=== PATIENT | female | born 1940 | race Caucasian/White ===

== ENCOUNTER 2016-04-23 23:13 | Inpatient (IN) | payer MEDICARE, OTHER ==
[~2016-04-23] VITALS: Ht 157.4 cm; Wt 67.3 kg
--- NOTE | ~2016-04-23 | DS ---
[place], [place] DISCHARGE SUMMARY [id number] UNIT #: [id number] ROOM: 407 DOCTOR: MAXIMILIANO TURK MD BIRTHDATE: [birth year] DOS: 04/26/2016 HOSPITAL COURSE: The patient is 76-year-old. The patient comes in with complaints of abdominal pain. Please refer H and P for details. The patient woken up during the night with severe abdominal pain, which continued to get worse as the night progressed, so she decided finally to come into the Emergency Room. She was evaluated in the ER, which showed a CT of the abdomen and pelvis shows fatty infiltration around the pancreas, lipase was 158,970, SGOT was 622, SGPT was 239, bilirubin was 1.2, lactic acid 1.5. White cell count 7.9. The patient was admitted with diagnosis of acute gallstone pancreatitis. Ultrasound of the gallbladder was done, which did not show any evidence of cholecystitis, but again cholelithiasis was noticed with possible common bile duct stones. The patient had a consultation with Dr. Ferguson from surgery and Dr. Juarez from GI, was advised MRCP, ERCP and cholecystectomy. The patient has refused all testing, has kept n.p.o. and was given IV fluids. With the pancreatic rest, the enzymes have slowly come down and the liver enzymes have also come down. The last hepatic enzymes we have with an SGOT of 64, SGPT 100, alkaline phosphatase 183 on 04/25/2016. Amylase and lipase at 359 and 2235 on 04/26/2016. The patient does not have any complaints today. She does not have any abdominal pain. No fever or chills. So the plan therefore is to discharge her to home after regular diet is given. The patient is going to seek a second opinion as regards to her care of plan. DISCHARGE MEDICATIONS: All her home meds being continued. She is advised to have an amylase and lipase on Friday. Lovastatin 20 daily, metoprolol 25 b.i.d., losartan 25 daily, alendronate 70 once weekly, Ecotrin 325 daily. MAXIMILIANO TURK MD CM:DISCHARG [id number] MAXIMILIANO TURK MD 04/26/16 0905 interface
--- NOTE | ~2016-04-23 | CON ---
[place], [place] REPORT OF CONSULTATION NAME: LILLY GUERRERO UNIT #: [id number] ROOM: 407 DOCTOR: SONG PASCUALMARIEL BIRTHDATE: [birth year] DOS: HISTORY OF PRESENT ILLNESS: A 76-year-old who has presented with chief complaint of acute abdominal pain. The patient was admitted through the Emergency Room and underwent blood work evaluation and was found to have differential, CBC was within normal limit. White blood cell was 7.9, H and H of 12 and 37. Lactic acid which was 1.7. Urinalysis unremarkable. CT scan of the abdomen showed mild stranding around the pancreas, otherwise main organs reviewed, within normal limits. Amylase and lipase followup from initial lipase of 150,000 plus dropped to 40,000 this morning. Amylase however 3000+. PAST MEDICAL HISTORY: Nonalcohol, history of hypertension. MEDICATIONS: Reviewed including aspirin. SOCIAL HISTORY: As reviewed. PAST SURGICAL HISTORY: Unremarkable. REVIEW OF SYSTEMS: HEENT: Denies double vision, blurred vision. RESPIRATORY: Denies shortness of breath. CARDIOVASCULAR: Denies chest pain. DIGESTIVE SYSTEM: Acute abdominal pain. PHYSICAL EXAMINATION: VITAL SIGNS: Stable. HEENT: Head normocephalic, nontraumatic. Mouth and buccal mucosa benign. NECK: Supple, no thyromegaly. CHEST: Symmetric anatomy, equal expansion. HEART: Normal sinus rhythm, no gallop, no murmur. ABDOMEN: Soft. No hepato-organomegaly. Bowel sounds present. No pulsatile mass. However, tender across abdominally. Costovertebral angle bilaterally, nontender. No evidence of Robertson Campbell's sign. No evidence of [place]'s sign. EXTREMITIES: No cyanosis, no pedal edema. Dorsalis pedis and radial pulses intact. NEUROLOGIC: Alert, oriented to time, place, person. IMPRESSION: Acute pancreatitis with lipase of greater than 150,000 and subsequent followup on IV resuscitation reduced lipase to 40,000. Other adjunctive diagnoses: History of hypertension. This patient has been on aspirin, aspirin is going to go on hold. Her calcium is 10.1. Fortunately, there is no saponification evidenced at this time. Her CT scan of the abdomen showed multiple gallstones. Apparently, the patient is gone for sonographic study of the gallbladder, which results are pending and expected to be such. Other adjunctive diagnoses are available per radiologic studies include chronic obstructive pulmonary disease, moderate size hiatal hernia, diverticulosis. PLAN AND DISCUSSION: Continuation with aggressive IV hydration, pain management, follow up amylase, lipase, electrolytes and BUN and creatinine and [place], [place] REPORT OF CONSULTATION NAME: LILLY GUERRERO UNIT #: [id number] ROOM: 407 DOCTOR: MARIEL ZULETA MD BIRTHDATE: [birth year] clinical decision modification as we go along. Surgical consultation already on board. Thank you very much indeed. Sincerely yours, MARIEL ZULETA MD CM:CONSTR:REPORT OF CONSULTATION 1558 04/25/16 0828 interface
--- NOTE | ~2016-04-23 | PR ---
[place], [place] PROGRESS NOTE NAME: LILLY GUERRERO UNIT #: [id number] ROOM: 407 DOCTOR: MAXIMILIANO TURK MD BIRTHDATE: [birth year] DOS: SUBJECTIVE: The patient states that she feels better, does not have any complaints today. OBJECTIVE: VITAL SIGNS: Graphic trend shows a pressure of 150/64, pulse of 90, respirations 22, temperature 98.1. LUNGS: Clear. HEART: Regular. ABDOMEN: Obese, soft, nontender. EXTREMITIES: Without any edema. LABORATORY DATA: Amylase is 359 and lipase is 2235. Hepatic enzymes have also improved. Yesterday, SGOT was 64, SGPT was 100. ASSESSMENT AND PLAN: 1. Gallstone pancreatitis. The patient has refused MRCP, ERCP, and cholecystectomy. Since the lipase and amylase have improved, we will start her back on a diet and discharge the patient to home today. She wants to get a second opinion from a surgeon in [place], so records will be released for her. 2. Benign hypertension, controlled. Restart home medications on discharge. MAXIMILIANO TURK MD CM:PNTRANS [phone] [id number] MAXIMILIANO TURK MD 04/26/162231 interface
--- NOTE | ~2016-04-23 | PR ---
[place], [place] PROGRESS NOTE NAME: LILLY GUERRERO [facility] #: [id number] UNIT #: [id number] ROOM: 407 DOCTOR: MAXIMILIANO TURK MD BIRTHDATE: [birth year] DOS: 04/25/2016 SUBJECTIVE: The patient is doing fine without any complaints this morning. OBJECTIVE: VITAL SIGNS: Graphic trend shows pressure 142/65, pulse of 107, respirations 18, temperature 98.7, T-max 100.6. LUNGS: Diminished breath sounds, clear. HEART: Regular. ABDOMEN: Soft, nontender. EXTREMITIES: Without any edema. LABORATORY DATA: None available today. Ultrasound of the gallbladder yesterday showed cholelithiasis with a dilated common bile duct. ASSESSMENT AND PLAN: 1. Acute gallstone pancreatitis. Clinically, the patient is improving, but will wait and see what the amylase and lipase comes back. 2. Common bile duct dilatation. We will do an MRCP today. I will speak to Dr. Juarez about it. and may require a cholecystectomy in the near future, but we will first see the MRCP. MAXIMILIANO TURK MD CM:PNTRANS [id number] MAXIMILIANO TURK MD 05/30/16 1156 interface
--- NOTE | ~2016-04-23 | WRIGHTHP ---
[place], [place] PATIENT HISTORY AND PHYSICAL EXAM NAME: LILLY GUERRERO [facility] #: [id number] UNIT #: [id number] ROOM: 407 DOCTOR: MAXIMILIANO TURK MD BIRTHDATE: [birth year] DOS: 04/24/2016 HISTORY OF PRESENT ILLNESS: This patient is 76 years old. The patient is very well known to us, comes in with complaints of severe abdominal pain, which started yesterday night. The patient states that she was fine until this evening when she started noticing the pain and the pain continued to get worse, so decided finally to come into the Emergency Room. She is slightly nauseous, but does not have any emesis. Does not have any fever or chills. Does not have any abdominal pain, nausea, and emesis. She recently had a UTI and was placed on Bactrim and was taking the medicine. PAST MEDICAL HISTORY: Significant for; 1. Benign hypertension. 2. Generalized anxiety disorder. MEDICATIONS: She is on alendronate 70 once weekly, aspirin 325, losartan 25, lovastatin 20, metoprolol 25 b.i.d. SOCIAL HISTORY: Nonsmoker, does not use any alcohol. Lives at home. PHYSICAL EXAMINATION: GENERAL: She is awake and alert and oriented. VITAL SIGNS: Blood pressure is 146/86, pulse of 76, respirations 18, temperature 97.9. LUNGS: Diminished breath sounds, clear. HEART: Regular. ABDOMEN: Soft. EXTREMITIES: Without any edema. LABORATORY DATA: CT of the abdomen shows fat infiltration around the pancreas with evidence of pancreatitis. Urinalysis was trace blood. Lactic acid 1.5. WBC count is 7.9, hemoglobin 12.2, hematocrit 37.4. Comprehensive, glucose 177, BUN 19, creatinine 1.35, GFR 38. Electrolytes normal. Lipase was 158,970. SGOT was 622, SGPT 239, bilirubin 1.2. ASSESSMENT AND PLAN: 1. Acute pancreatitis, possible gallstone related. IV fluids have been ordered. The patient to be kept n.p.o. Dr. Juarez was consulted for possible ERCP. 2. Gallstone with mildly dilated gallbladder, would eventually need a cholecystectomy, so Dr. Ferguson has been consulted. 3. Benign hypertension, controlled. We will hold off on all antihypertensive and continue following the amylase and lipase levels. [place], [place] PATIENT HISTORY AND PHYSICAL EXAM NAME: LILLY GUERRERO UNIT #: [id number] ROOM: 407 DOCTOR: MAXIMILIANO TURK MD BIRTHDATE: [birth year] MAXIMILIANO TURK MD CM:HISPHYS:PATIENT HISTORY AND PHYSICAL EXAMINATION 7 MAXIMILIANO TURK MD 04/24/16 0927 interface
--- NOTE | ~2016-04-23 | CON ---
[place], [place] REPORT OF CONSULTATION [id number] UNIT #: [id number] ROOM: 407 DOCTOR: MARIEL ZULETA MD BIRTHDATE: [birth year] DOS: 04/24/2016 HISTORY OF PRESENT ILLNESS: A 76-year-old patient who has presented with chief complaint of acute abdominal pain, had been admitted for definitive evaluation. The patient had a panel of urinalysis and workup done. Urinalysis was unremarkable. Lactic acid was 1.5. CBC differential white blood cells 7, H and H of 12 and 37. INR 1.1. Acute abdominal series normal. No acute cardiomyopathy or cardiopulmonary findings. CT scan of the abdomen was done. Mild stranding of the pancreatic anatomy, otherwise moderate cortical thinning, bilateral kidney. Main organs otherwise including liver, spleen, adrenal glands are within normal limits. Her amylase and lipase initially was 150,000 plus. Lipase and C-reactive protein elevated of course. GOT, GPT of 600 and 200 plus respectively, alkaline phosphatase 314, bilirubin of 1.2. MARIEL ZULETA MD CM:CONSTR:REPORT OF CONSULTATION 1553 05/30/16 1158 COLLEEN [email or web address]
[2016-04-23 23:18] VITALS: BP 136/96
[2016-04-23] MEDS ORDERED: TOPROL XL25 MG PO (23:20)
[2016-04-23] MEDS ORDERED: LOVASTATIN20 MG PO (23:20)
[2016-04-23] MEDS ORDERED: ALENDRONATE SOD70 M1 PO (23:21)
[2016-04-23] MEDS ORDERED: COZAAR25 M1 PO (23:21)
[2016-04-23] MEDS ORDERED: ECOTRIN325 M1 PO (23:22)
[2016-04-23 23:45] LABS: BILIRUBIN NEGATIVE (NEGATIVE); BLOOD TRACE-INTACT (NEGATIVE); CLARITY CLEAR (CLEAR); COLOR YELLOW (YELLOW); GLUCOSE NEGATIVE (NEGATIVE); KETONE NEGATIVE (NEGATIVE); LEUKO ESTERASE NEGATIVE (NEGATIVE); NITRITE NEGATIVE (NEGATIVE); PH 6.5 (5.0-9.0); PROTEIN TRACE (NEGATIVE); SPECIFIC GRAVITY 1.015 (1.005-1.030); UROBILINOGEN 0.2 E.U./dl (0.2-1.0)
[2016-04-23 23:53] LABS: BACTERIA TRACE; HYALINE CAST 0-2; RBC 0-2 rbc/hpf (0-2); URINE REFLEX COMMENT NO (NO); WBC 0-2 wbc/hpf (0-5)
[2016-04-24] VITALS (8 sets, daily range): BP systolic 116–180; BP diastolic 51–95
[2016-04-24 00:02] LABS: BASO % 0.4 % (0.0-1.0); EOS % 0.4 % (1.0-4.0); HEMATOCRIT 37.4 % (37.0-47.0); HEMOGLOBIN 12.2 g/dl (12.0-16.0); IG # 0.1 10*3/uL (0.0-0.1); LYMPH # 1.6 10*3/uL (1.3-4.4); LYMPH % 20.2 % (27.0-41.0); MEAN CELL VOLUME 84.2 fl (81.0-99.0); MEAN CORPUSCULAR HGB 27.5 pg (27.0-31.0); MEAN CORPUSCULAR HGB CONC 32.6 g/dl (33.0-37.0); MEAN PLATELET VOLUME 9.8 fl (9.6-12.3); MONO # 0.8 10*3/uL (0.1-1.0); MONO % 9.5 % (3.0-9.0); NEUT # 5.4 10*3/uL (2.3-7.9); NEUT % 68.7 % (47.0-73.0); PLATELET COUNT AUTOMATED 309 10*3/uL (130-400); RED BLOOD COUNT 4.44 10*6/uL (4.10-5.10); RED CELL DISTRI WIDTH 15.5 % (0-14.5); WHITE BLOOD COUNT 7.9 10*3/uL (4.8-10.8)
[2016-04-24 00:13] LABS: INTERNATIONAL NORM RATIO 1.1 (2.0-3.5); PROTHROMBIN TIME 11.2 SECONDS (9.0-12.4)
[2016-04-24 00:18] LABS: ALBUMIN 3.7 gm/dl (3.1-4.5); ALKALINE PHOSPHATASE 314 U/L (45-117); BILIRUBIN, TOTAL 1.2 mg/dl (0.2-1.0); BUN 19 mg/dl (7-24); C-REACTIVE PROTEIN 1.18 MG/DL (0-0.3); CARBON DIOXIDE 24 mmol/L (21-32); CHLORIDE 102 mmol/L (98-107); EST GLOM FILT AFRICAN AMERICAN 46 ml/min; GLUCOSE 177 mg/dL (65-99); MAGNESIUM 1.9 mg/dL (1.5-2.1); POTASSIUM 4.1 mmol/L (3.5-5.1); SGOT/AST 622 IU/L (3-35); SGPT/ALT 239 U/L (12-78); SODIUM 137 mmol/L (136-145); TOTAL PROTEIN 7.9 gm/dL (6.4-8.2)
[2016-04-24 00:19] LABS: TROPONIN I < 0.015 ng/ml (<0.5)
[2016-04-25] VITALS: BP 135/65
[2016-04-25 08:00] VITALS: BP 142/65
[2016-04-25 12:00] VITALS: BP 124/61
[2016-04-25 12:51] LABS: ALBUMIN 2.8 gm/dl (3.1-4.5); BILIRUBIN, DIRECT 0.1 mg/dL (0.0-0.2); BILIRUBIN, TOTAL 0.5 mg/dl (0.2-1.0); TOTAL PROTEIN 6.8 gm/dL (6.4-8.2)
[2016-04-25 16:00] VITALS: BP 141/62
[2016-04-25 20:00] VITALS: BP 131/50
[2016-04-26] VITALS: BP 111/60
[2016-04-26 08:00] VITALS: BP 150/64
== END 2016-04-26 09:43 | disposition home or self-care (01) | DRG 440 ==
LOC: ED 23:13 → EDHOLD 04-24 02:16 → 4E 04-24 02:16
PROVIDERS: Emergency Medicine Emergency Medical Services; Surgery
DX: K85.10 Biliary acute pancreatitis without necrosis or infection (principal); J44.9 Chronic obstructive pulmonary disease, unspecified; K80.50 Calculus of bile duct without cholangitis or cholecystitis without obstruction; I10 Essential (primary) hypertension; F41.1 Generalized anxiety disorder; Z79.82 Long term (current) use of aspirin; Z79.899 Other long term (current) drug therapy

== ENCOUNTER → 2016-04-29 | Outpatient (CLI) | payer MEDICARE, OTHER ==
[~2016-04-29] MED LIST: ALENDRONATE SOD70 M1 PO; COZAAR25 M1 PO; ECOTRIN325 M1 PO; LOVASTATIN20 MG PO; TOPROL XL25 MG PO
== END | disposition home or self-care (01) ==
LOC: LAB 07:06
DX: K85.90 Acute pancreatitis without necrosis or infection, unspecified (principal)

== ENCOUNTER → 2016-10-17 | Outpatient (CLI) | payer MEDICARE, OTHER | END | disposition home or self-care (01) | LOC: RAD 10:42 | DX: N95.9 Unspecified menopausal and perimenopausal disorder (principal) ==

== ENCOUNTER → 2018-12-02 | Outpatient (CLI) | payer MEDICARE, OTHER | END | disposition home or self-care (01) | LOC: US 13:23 | DX: N28.1 Cyst of kidney, acquired (principal); N28.89 Other specified disorders of kidney and ureter ==

== ENCOUNTER → 2019-10-11 | Outpatient (CLI) | payer MEDICARE, OTHER | END | disposition home or self-care (01) | LOC: CARD 08:30 | DX: M17.0 Bilateral primary osteoarthritis of knee (principal); I35.0 Nonrheumatic aortic (valve) stenosis ==

== ENCOUNTER → 2020-03-05 | Outpatient (CLI) | payer MEDICARE, OTHER | END | disposition home or self-care (01) | LOC: COVID19 08:31 | PROVIDERS: ATTEND Internal Medicine | DX: U07.1 COVID-19 (principal) ==

== ENCOUNTER → 2020-11-29 | Outpatient (CLI) | payer MEDICARE, OTHER | END | disposition home or self-care (01) | LOC: RAD 13:22 | PROVIDERS: ATTEND Internal Medicine | DX: Z13.820 Encounter for screening for osteoporosis (principal); Z78.0 Asymptomatic menopausal state; Z79.83 Long term (current) use of bisphosphonates ==

== ENCOUNTER → 2020-12-04 | Outpatient (CLI) | payer MEDICARE, OTHER | END | disposition home or self-care (01) | LOC: US 00:13 | PROVIDERS: ATTEND Internal Medicine | DX: I08.3 Combined rheumatic disorders of mitral, aortic and tricuspid valves (principal); I65.23 Occlusion and stenosis of bilateral carotid arteries ==

== ENCOUNTER → 2021-01-01 | Outpatient (CLI) | payer MEDICARE, OTHER | END | disposition home or self-care (01) | LOC: COVID19 15:19 | PROVIDERS: ATTEND Internal Medicine | DX: Z11.52 Encounter for screening for COVID-19 (principal) ==

== ENCOUNTER → 2021-03-16 | Outpatient (CLI) | payer MEDICARE, OTHER | END | disposition home or self-care (01) | LOC: COVID19 14:55 | PROVIDERS: ATTEND Podiatrist Foot & Ankle Surgery | DX: Z11.52 Encounter for screening for COVID-19 (principal) ==

== ENCOUNTER → 2021-12-03 | Outpatient (CLI) | payer MEDICARE, OTHER ==
[2021-12-03 08:25] LABS: BASO # 0.1 10*3/uL (0.0-0.1); BASO % 0.7 % (0.0-1.0); EOS # 0.1 10*3/uL (0.0-0.4); EOS % 2.1 % (1.0-4.0); HEMATOCRIT 35.3 % (37.0-47.0); LYMPH # 2.7 10*3/uL (1.3-4.4); LYMPH % 39.6 % (27.0-41.0); MEAN CELL VOLUME 79.5 fl (81.0-99.0); MEAN CORPUSCULAR HGB 24.1 pg (27.0-31.0); MEAN CORPUSCULAR HGB CONC 30.3 g/dl (33.0-37.0); MEAN PLATELET VOLUME 9.5 fl (9.6-12.3); MONO # 0.8 10*3/uL (0.1-1.0); MONO % 11.2 % (3.0-9.0); NEUT # 3.1 10*3/uL (2.3-7.9); NEUT % 46.3 % (47.0-73.0); PLATELET COUNT AUTOMATED 250 10*3/uL (130-400); RED BLOOD COUNT 4.44 10*6/uL (4.10-5.10); RED CELL DISTRI WIDTH 17.5 % (0-14.5); WHITE BLOOD COUNT 6.7 10*3/uL (4.8-10.8)
[2021-12-03 08:43] LABS: CREATININE 1.08 mg/dL (0.55-1.02); TOTAL PROTEIN 7.9 gm/dL (6.4-8.2)
[2021-12-03 08:48] LABS: FREE T4 1.11 ng/dl (0.76-1.46); THYROID STIM HORMONE (HS) 1.33 uIU/ml (0.358-4.75)
[2021-12-03 09:37] LABS: VITAMIN D, 25-HYDROXY 26.8 ng/mL (30-100)
== END | disposition home or self-care (01) ==
LOC: LAB 08:05
PROVIDERS: ATTEND Internal Medicine
DX: Z13.89 Encounter for screening for other disorder (principal); Z23 Encounter for immunization; I10 Essential (primary) hypertension; E78.2 Mixed hyperlipidemia; E55.9 Vitamin D deficiency, unspecified

== ENCOUNTER → 2022-02-13 | Outpatient (CLI) | payer MEDICARE, OTHER | LOC: LAB 13:37 → US 14:00 | PROVIDERS: ATTEND Internal Medicine | DX: N28.1 Cyst of kidney, acquired (principal); R94.4 Abnormal results of kidney function studies; D50.9 Iron deficiency anemia, unspecified; Z13.0 Encounter for screening for diseases of the blood and blood-forming organs and certain disorders involving the immune mechanism; Z13.1 Encounter for screening for diabetes mellitus; Z13.21 Encounter for screening for nutritional disorder; Z13.220 Encounter for screening for lipoid disorders; Z13.228 Encounter for screening for other metabolic disorders; Z13.29 Encounter for screening for other suspected endocrine disorder; Z13.6 Encounter for screening for cardiovascular disorders; Z13.89 Encounter for screening for other disorder; Z13.9 Encounter for screening, unspecified ==

== ENCOUNTER → 2022-09-18 | Outpatient (CLI) | payer MEDICARE, OTHER ==
[2022-09-18 10:04] LABS: BASO % 0.5 % (0.0-1.0); EOS # 0.1 10*3/uL (0.0-0.4); EOS % 1.1 % (1.0-4.0); HEMATOCRIT 44.1 % (37.0-47.0); LYMPH # 2.2 10*3/uL (1.3-4.4); LYMPH % 29.7 % (27.0-41.0); MEAN CELL VOLUME 90.2 fl (81.0-99.0); MEAN CORPUSCULAR HGB 29.2 pg (27.0-31.0); MEAN CORPUSCULAR HGB CONC 32.4 g/dl (33.0-37.0); MEAN PLATELET VOLUME 9.6 fl (9.6-12.3); MONO # 0.7 10*3/uL (0.1-1.0); MONO % 8.7 % (3.0-9.0); NEUT # 4.5 10*3/uL (2.3-7.9); NEUT % 59.7 % (47.0-73.0); PLATELET COUNT AUTOMATED 259 10*3/uL (130-400); RED BLOOD COUNT 4.89 10*6/uL (4.10-5.10); RED CELL DISTRI WIDTH 15.9 % (0-14.5); WHITE BLOOD COUNT 7.5 10*3/uL (4.8-10.8)
[2022-09-18 10:36] LABS: ALKALINE PHOSPHATASE 56 U/L (46-116); BUN 11 mg/dl (9-23); CHLORIDE 105 mmol/L (98-107); CHOLESTEROL 163 mg/dL (<200); LDL CHOLESTEROL 82 mg/dL (9-159); POTASSIUM 4.2 mmol/L (3.4-5.1); SGPT/ALT 18 U/L (10-49); THYROID STIM HORMONE (HS) 1.408 uIU/ml (0.550-4.780); TOTAL PROTEIN 7.9 gm/dL (6.0-8.0); TRIGLYCERIDES 167 mg/dl (<150)
[2022-09-18 10:44] LABS: VITAMIN D, 25-HYDROXY 44.6 ng/mL (30-100)
== END | disposition home or self-care (01) ==
LOC: LAB 00:50 → US 00:50
PROVIDERS: ATTEND Internal Medicine
DX: I65.23 Occlusion and stenosis of bilateral carotid arteries (principal); I67.89 Other cerebrovascular disease; Z00.00 Encounter for general adult medical examination without abnormal findings; E55.9 Vitamin D deficiency, unspecified; E78.2 Mixed hyperlipidemia; I10 Essential (primary) hypertension; E11.9 Type 2 diabetes mellitus without complications; E03.9 Hypothyroidism, unspecified

== ENCOUNTER → 2022-10-09 | Outpatient (CLI) | payer MEDICARE, OTHER | END | disposition home or self-care (01) | LOC: CT 00:25 | PROVIDERS: ATTEND Internal Medicine | DX: I65.23 Occlusion and stenosis of bilateral carotid arteries (principal); M50.80 Other cervical disc disorders, unspecified cervical region ==

== ENCOUNTER → 2023-02-25 | Outpatient (CLI) | payer MEDICARE, OTHER ==
[~2023-02-25] MED LIST changes: +LIPITOR80 MG PO; +OMEPRAZOLE40 MG PO
== END | disposition home or self-care (01) ==
LOC: CARD 02-18 07:30
PROVIDERS: ATTEND Internal Medicine Cardiovascular Disease
DX: I49.3 Ventricular premature depolarization (principal); R00.0 Tachycardia, unspecified; R94.31 Abnormal electrocardiogram [ECG] [EKG]

== ENCOUNTER → 2023-04-30 | Outpatient (CLI) | payer MEDICARE, OTHER ==
[2023-04-30 08:39] LABS: BASO % 0.6 % (0.0-1.0); EOS # 0.2 10*3/uL (0.0-0.4); EOS % 2.7 % (1.0-4.0); HEMATOCRIT 42.9 % (37.0-47.0); LYMPH # 2.6 10*3/uL (1.3-4.4); LYMPH % 40.9 % (27.0-41.0); MEAN CELL VOLUME 92.3 fl (81.0-99.0); MEAN CORPUSCULAR HGB 29.5 pg (27.0-31.0); MEAN CORPUSCULAR HGB CONC 31.9 g/dl (33.0-37.0); MEAN PLATELET VOLUME 9.6 fl (9.6-12.3); MONO # 0.7 10*3/uL (0.1-1.0); MONO % 10.4 % (3.0-9.0); NEUT # 2.8 10*3/uL (2.3-7.9); NEUT % 45.2 % (47.0-73.0); PLATELET COUNT AUTOMATED 245 10*3/uL (130-400); RED BLOOD COUNT 4.65 10*6/uL (4.10-5.10); RED CELL DISTRI WIDTH 14.2 % (0-14.5); WHITE BLOOD COUNT 6.2 10*3/uL (4.8-10.8)
[2023-04-30 09:10] LABS: ALKALINE PHOSPHATASE 55 U/L (46-116); BUN 12 mg/dl (9-23); CHLORIDE 110 mmol/L (98-107); CHOLESTEROL 161 mg/dL (<200); FREE T4 1.16 ng/dl (0.89-1.76); LDL CHOLESTEROL 91 mg/dL (9-159); POTASSIUM 4.2 mmol/L (3.4-5.1); SGPT/ALT 20 U/L (5-49); TOTAL PROTEIN 7.5 gm/dL (6.0-8.0); TRIGLYCERIDES 139 mg/dl (<150); VITAMIN D, 25-HYDROXY 55.4 ng/mL (30-100)
== END | disposition home or self-care (01) ==
LOC: LAB 01:08
PROVIDERS: ATTEND Internal Medicine
DX: I10 Essential (primary) hypertension (principal); E78.2 Mixed hyperlipidemia; E55.9 Vitamin D deficiency, unspecified

== ENCOUNTER → 2023-08-08 | Outpatient (CLI) | payer MEDICARE, OTHER | END | disposition home or self-care (01) | LOC: US 08-07 14:00 → CT 08-07 16:00 → US 08-07 17:00 → CT 02:13 | PROVIDERS: ATTEND Internal Medicine | DX: N28.1 Cyst of kidney, acquired (principal); I67.82 Cerebral ischemia; I70.0 Atherosclerosis of aorta; R51.9 Headache, unspecified; R79.89 Other specified abnormal findings of blood chemistry; I10 Essential (primary) hypertension; N32.89 Other specified disorders of bladder ==

== ENCOUNTER → 2024-05-03 | Outpatient (CLI) | payer MEDICARE, OTHER ==
[2024-05-03 10:02] LABS: BASO % 0.5 % (0.0-1.0); EOS # 0.1 10*3/uL (0.0-0.4); EOS % 1.9 % (1.0-4.0); HEMATOCRIT 43.4 % (37.0-47.0); MEAN CELL VOLUME 91.9 fl (81.0-99.0); MEAN CORPUSCULAR HGB 28.8 pg (27.0-31.0); MEAN CORPUSCULAR HGB CONC 31.3 g/dl (33.0-37.0); MEAN PLATELET VOLUME 9.9 fl (9.6-12.3); MONO # 0.6 10*3/uL (0.1-1.0); MONO % 9.4 % (3.0-9.0); NEUT # 3.1 10*3/uL (2.3-7.9); NEUT % 52.4 % (47.0-73.0); PLATELET COUNT AUTOMATED 267 10*3/uL (130-400); RED BLOOD COUNT 4.72 10*6/uL (4.10-5.10); RED CELL DISTRI WIDTH 13.9 % (0-14.5); WHITE BLOOD COUNT 5.8 10*3/uL (4.8-10.8)
[2024-05-03 10:46] LABS: ALKALINE PHOSPHATASE 58 U/L (46-116); BUN 11 mg/dl (9-23); CHLORIDE 105 mmol/L (98-107); CHOLESTEROL 157 mg/dL (<200); FREE T4 1.27 ng/dl (0.89-1.76); LDL CHOLESTEROL 86 mg/dL (9-159); SGPT/ALT 18 U/L (5-49); TOTAL PROTEIN 7.7 gm/dL (6.0-8.0); TRIGLYCERIDES 127 mg/dl (<150)
[2024-05-03 11:13] LABS: VITAMIN D, 25-HYDROXY 53.8 ng/mL (30-100)
== END | disposition home or self-care (01) ==
LOC: LAB 09:33
PROVIDERS: ATTEND Internal Medicine
DX: Z13.0 Encounter for screening for diseases of the blood and blood-forming organs and certain disorders involving the immune mechanism (principal); Z13.1 Encounter for screening for diabetes mellitus; Z13.21 Encounter for screening for nutritional disorder; Z13.220 Encounter for screening for lipoid disorders; Z13.228 Encounter for screening for other metabolic disorders; Z13.29 Encounter for screening for other suspected endocrine disorder; Z13.6 Encounter for screening for cardiovascular disorders; Z13.89 Encounter for screening for other disorder; Z13.9 Encounter for screening, unspecified; E78.2 Mixed hyperlipidemia; I11.9 Hypertensive heart disease without heart failure; N18.30 Chronic kidney disease, stage 3 unspecified; E55.9 Vitamin D deficiency, unspecified; D64.9 Anemia, unspecified; R53.83 Other fatigue; E53.9 Vitamin B deficiency, unspecified

== ENCOUNTER → 2024-09-02 | Outpatient (CLI) | payer MEDICARE, OTHER | END | disposition home or self-care (01) | LOC: LAB 08:14 | PROVIDERS: ATTEND Internal Medicine | DX: E11.9 Type 2 diabetes mellitus without complications (principal) ==